=== PATIENT | female | born 1960 | race African-American/Black ===

== ENCOUNTER 2018-09-10 18:55 | Inpatient (IN) | payer SELFPAY, OTHER ==
[2018-09-10 19:39] LABS: ADD MAN DIFF? NO
[2018-09-10 19:42] LABS: BASOPHILS % 0.8 % (0.0-2.0); EOSINOPHILS # 0.1 10^3/ul (0.0-0.5); EOSINOPHILS % 1.4 % (0.0-7.0); HEMATOCRIT 32.9 % (37.0-47.0); HEMOGLOBIN 10.7 g/dl (12.0-16.0); LYMPHOCYTES # 1.4 10^3/ul (0.8-2.9); LYMPHOCYTES % 38.1 % (15.0-51.0); MEAN CORPUSCULAR HEMOGLOBIN 34.1 pg (29.0-33.0); MEAN CORPUSCULAR HGB CONC 32.5 g/dl (32.0-37.0); MEAN CORPUSCULAR VOLUME 104.8 fl (82.0-101.0); MEAN PLATELET VOLUME 9.5 fl (7.4-10.4); MONOCYTE # 0.4 10^3/ul (0.3-0.9); MONOCYTES % 10.9 % (0.0-11.0); NEUTROPHIL # 1.7 10^3/ul (1.6-7.5); NEUTROPHILS % 48.2 % (39.0-77.0); PLATELET COUNT 158 10^3/UL (140-415); RED BLOOD COUNT 3.14 10^6/ul (4.20-5.40)
[2018-09-10 19:42] LABS: WHITE BLOOD COUNT 3.6 10^3/ul (4.8-10.8)
[2018-09-10] MEDS: FENTAnyl 50 MCG/ML VIAL IV (19:50)
[2018-09-10 20:05] LABS: ANION GAP 17 (5-13); BLOOD UREA NITROGEN 6 mg/dl (7-20); CALCIUM 9.3 mg/dl (8.4-10.2); CARBON DIOXIDE 17 mmol/L (21-31); CHLORIDE 103 mmol/L (97-110); CREATININE 0.41 mg/dl (0.44-1.00); Estimated GFR > 60 mL/min (>60); GLUCOSE 89 mg/dl (70-220); SODIUM 137 mmol/L (135-144)
[2018-09-10 20:08] LABS: INR 0.96; PROTIME 12.9 Sec (11.9-14.9)
[2018-09-10 20:09] LABS: PARTIAL THROMBOPLASTIN TIME 25.7 Sec (23.0-35.0)
[2018-09-10] MEDS: HYDROmorphONE 2 MG/ML SYG IV (20:37)
[2018-09-10] MEDS: ONDANSETRON 4 MG INJ IV (22:00)
[2018-09-10] MEDS: ACETAMINOPHEN 325 MG TAB PO (22:00)
[2018-09-10] MEDS ORDERED: ONDANSETRON 4 MG INJ IV (23:00)
[2018-09-10] MEDS ORDERED: NACL 0.9% 3 ML SYG IV (23:00)
[2018-09-10] MEDS ORDERED: ACETAMINOPHEN 325 MG TAB PO (23:00)
[2018-09-10] MEDS: HYDROCODONE/APAP (5/325) TAB PO (23:02)
[2018-09-10] MEDS: HYDROmorphONE 1 MG/ML SYG IV (23:58)
[2018-09-11] MEDS: HYDROmorphONE 1 MG/ML SYG IV (04:40)
[2018-09-11 05:02] LABS: ADD MAN DIFF? NO
[2018-09-11 05:06] LABS: BASOPHILS % 0.5 % (0.0-2.0); EOSINOPHILS % 0.7 % (0.0-7.0); HEMATOCRIT 27.4 % (37.0-47.0); LYMPHOCYTES # 1.6 10^3/ul (0.8-2.9); MEAN CORPUSCULAR HEMOGLOBIN 33.8 pg (29.0-33.0); MEAN CORPUSCULAR HGB CONC 32.8 g/dl (32.0-37.0); MEAN PLATELET VOLUME 10.1 fl (7.4-10.4); MONOCYTE # 0.4 10^3/ul (0.3-0.9); MONOCYTES % 9.8 % (0.0-11.0); NEUTROPHIL # 2.2 10^3/ul (1.6-7.5); NEUTROPHILS % 51.5 % (39.0-77.0); PLATELET COUNT 151 10^3/UL (140-415); RED BLOOD COUNT 2.66 10^6/ul (4.20-5.40); RED CELL DISTRIBUTION WIDTH 15.1 % (11.5-14.5)
[2018-09-11 05:06] LABS: WHITE BLOOD COUNT 4.2 10^3/ul (4.8-10.8)
[2018-09-11 05:25] LABS: ALANINE AMINOTRANSFERASE 29 IU/L (13-69); ALBUMIN 3.7 g/dl (3.3-4.9); ALBUMIN/GLOBULIN RATIO 1.54; ALKALINE PHOSPHATASE 84 IU/L (42-121); ANION GAP 11 (5-13); ASPARTATE AMINO TRANSFERASE 52 IU/L (15-46); BILIRUBIN,INDIRECT 0.5 mg/dl (0-1.1); BILIRUBIN,TOTAL 0.5 mg/dl (0.2-1.3); BLOOD UREA NITROGEN 6 mg/dl (7-20); CARBON DIOXIDE 25 mmol/L (21-31); CHLORIDE 102 mmol/L (97-110); CREATININE 0.46 mg/dl (0.44-1.00); Estimated GFR > 60 mL/min (>60); GLUCOSE 94 mg/dl (70-220); MAGNESIUM 1.7 mg/dl (1.7-2.5); PHOSPHORUS 4.4 mg/dl (2.5-4.9); POTASSIUM 4.1 mmol/L (3.5-5.1); SODIUM 138 mmol/L (135-144); TOTAL PROTEIN 6.1 g/dl (6.1-8.1)
[2018-09-11] MEDS: HYDROCODONE/APAP (5/325) TAB PO ×3 (06:44→19:37)
[2018-09-11] MEDS: morphine 4 MG/ML VIAL IV ×5 (08:07→20:59)
[2018-09-11 14:52] LABS: IMMEDIATE SPIN CROSSMATCH 1 2
[2018-09-11 19:03] LABS: ADD MAN DIFF? NO
[2018-09-11 19:10] LABS: WHITE BLOOD COUNT 4.4 10^3/ul (4.8-10.8)
[2018-09-11 19:10] LABS: BASOPHILS % 0.5 % (0.0-2.0); EOSINOPHILS % 0.9 % (0.0-7.0); HEMATOCRIT 31.1 % (37.0-47.0); HEMOGLOBIN 10.2 g/dl (12.0-16.0); LYMPHOCYTES # 1.2 10^3/ul (0.8-2.9); LYMPHOCYTES % 26.1 % (15.0-51.0); MEAN CORPUSCULAR HEMOGLOBIN 33.3 pg (29.0-33.0); MEAN CORPUSCULAR HGB CONC 32.8 g/dl (32.0-37.0); MEAN CORPUSCULAR VOLUME 101.6 fl (82.0-101.0); MONOCYTE # 0.4 10^3/ul (0.3-0.9); NEUTROPHIL # 2.7 10^3/ul (1.6-7.5); PLATELET COUNT 141 10^3/UL (140-415); RED BLOOD COUNT 3.06 10^6/ul (4.20-5.40); RED CELL DISTRIBUTION WIDTH 15.6 % (11.5-14.5)
[2018-09-12] MEDS: morphine 4 MG/ML VIAL IV ×4 (01:07→13:18)
[2018-09-12] MEDS: morphine 2 MG INJ IV (17:45)
[2018-09-12] MEDS ORDERED: morphine SULFATE/PF (2 MG/2 ML) SYG IV (18:00)
[2018-09-12] MEDS ORDERED: MIDAZOLAM 1 MG/ML 2 ML INJ (18:29)
[2018-09-12] MEDS ORDERED: FENTAnyl 50 MCG/ML VIAL (18:30)
[2018-09-12] MEDS ORDERED: HYDROmorphONE 1 MG/5 ML IV SYRINGE IV ×2 (18:30)
[2018-09-12] MEDS ORDERED: PROCHLORPERAZINE 10 MG INJ IV (18:30)
[2018-09-12] MEDS ORDERED: PROPOFOL 20 ML (18:30)
[2018-09-12] MEDS ORDERED: DIPHENHYDRAMINE 50 MG INJ IV ×2 (18:30→20:30)
[2018-09-12] MEDS ORDERED: FENTAnyl 50 MCG/ML VIAL IV (18:30)
[2018-09-12] MEDS ORDERED: ONDANSETRON 4 MG INJ IV (18:30)
[2018-09-12] MEDS ORDERED: LIDOCAINE 2% (SDV) 5 ML INJ (18:30)
[2018-09-12] MEDS ORDERED: MEPERIDINE 25 MG INJ IV (18:30)
[2018-09-12] MEDS ORDERED: morphine SULFATE/PF (10 MG/10 ML) INJ (18:31)
[2018-09-12] MEDS ORDERED: PHENYLephrine (100 MCG/ML) 5ML SYG ×2 (19:12→19:31)
[2018-09-12] MEDS ORDERED: CLINDAMYCIN 900 MG/D5W (PMX) 50 ML IVPB (19:14)
[2018-09-12] MEDS ORDERED: DEXAMETHASONE 4 MG/ML 5 ML INJ (19:16)
[2018-09-12] MEDS ORDERED: ONDANSETRON 4 MG INJ (19:16)
[2018-09-12] MEDS ORDERED: FAMOTIDINE 20 MG INJ (19:17)
[2018-09-12] MEDS ORDERED: EPHEDrine SULFATE 50 MG/5 ML SYG (20:04)
[2018-09-12] MEDS ORDERED: oxyCODONE 5 MG TAB PO (20:30)
[2018-09-12] MEDS ORDERED: NACL 0.9% 3 ML SYG IV (20:30)
[2018-09-12] MEDS ORDERED: morphine 4 MG/ML VIAL IV (20:30)
[2018-09-12] MEDS ORDERED: NALOXONE (0.4 MG/ML) INJ IV (20:30)
[2018-09-12] MEDS ORDERED: HYDROmorphONE 0.5 MG/0.5 ML SYG IV (20:30)
[2018-09-12] MEDS: CLINDAMYCIN 900 MG/D5W (PMX) 50 ML IVPB (22:10)
[2018-09-12] MEDS: DEXTROSE 5%-LR 1,000 ML IV (22:10)
[2018-09-12] MEDS: HYDROmorphONE 0.5 MG/0.5 ML SYG IV (22:50)
[2018-09-13] MEDS: HYDROmorphONE 0.5 MG/0.5 ML SYG IV ×5 (01:07→14:23)
[2018-09-13 05:10] LABS: ADD MAN DIFF? NO
[2018-09-13 05:13] LABS: WHITE BLOOD COUNT 5.4 10^3/ul (4.8-10.8)
[2018-09-13 05:13] LABS: ABNORMAL IP MESSAGE 1; BASOPHILS % 0.2 % (0.0-2.0); HEMATOCRIT 25.7 % (37.0-47.0); HEMOGLOBIN 8.5 g/dl (12.0-16.0); LYMPHOCYTES # 0.3 10^3/ul (0.8-2.9); LYMPHOCYTES % 5.7 % (15.0-51.0); MEAN CORPUSCULAR HEMOGLOBIN 33.5 pg (29.0-33.0); MEAN CORPUSCULAR HGB CONC 33.1 g/dl (32.0-37.0); MEAN CORPUSCULAR VOLUME 101.2 fl (82.0-101.0); MEAN PLATELET VOLUME 10.3 fl (7.4-10.4); MONOCYTE # 0.3 10^3/ul (0.3-0.9); MONOCYTES % 5.2 % (0.0-11.0); NEUTROPHIL # 4.8 10^3/ul (1.6-7.5); NEUTROPHILS % 88.5 % (39.0-77.0); PLATELET COUNT 132 10^3/UL (140-415); RED BLOOD COUNT 2.54 10^6/ul (4.20-5.40); RED CELL DISTRIBUTION WIDTH 14.8 % (11.5-14.5)
[2018-09-13] MEDS: CLINDAMYCIN 900 MG/D5W (PMX) 50 ML IVPB ×2 (05:35→14:19)
[2018-09-13 05:37] LABS: ANION GAP 9 (5-13); BLOOD UREA NITROGEN 7 mg/dl (7-20); CALCIUM 8.4 mg/dl (8.4-10.2); CARBON DIOXIDE 25 mmol/L (21-31); CHLORIDE 100 mmol/L (97-110); CREATININE 0.42 mg/dl (0.44-1.00); Estimated GFR > 60 mL/min (>60); GLUCOSE 281 mg/dl (70-220); POTASSIUM 3.9 mmol/L (3.5-5.1); SODIUM 134 mmol/L (135-144)
[2018-09-13 05:46] LABS: POSITIVE DIFF @See below
[2018-09-13] MEDS: ENOXAPARIN 40 MG/0.4 ML SYG SC (08:22)
[2018-09-13] MEDS: DEXTROSE 5%-LR 1,000 ML IV ×3 (08:59→21:29)
[2018-09-13] MEDS ORDERED: ENOXAPARIN 40 MG/0.4 ML SYG SC (09:00)
[2018-09-13 12:09] LABS: ADD UMIC YES; UR ASCORBIC ACID NEGATIVE (NEGATIVE); UR BILIRUBIN (Dip) NEGATIVE (NEGATIVE); UR BLOOD (Dip) 1+ mg/dL (NEGATIVE); UR CLARITY CLEAR (CLEAR); UR COLOR YELLOW (YELLOW); UR GLUCOSE (Dip) 1+ mg/dL (NEGATIVE); UR KETONES (Dip) NEGATIVE (NEGATIVE); UR LEUKOCYTE ESTERASE (Dip) NEGATIVE Leu/ul (NEGATIVE); UR NITRITE (Dip) NEGATIVE (NEGATIVE); UR RBC 16 /HPF (0-5); UR SPECIFIC GRAVITY (Dip) 1.015 (1.003-1.030); UR TOTAL PROTEIN (Dip) 1+ mg/dl (NEGATIVE); UR UROBILINOGEN (Dip) 1+ mg/dL (NEGATIVE); UR WBC 5 /HPF (0-5)
[2018-09-13] MEDS: oxyCODONE 5 MG TAB PO ×2 (17:44→21:57)
[2018-09-13] MEDS: HYDROCODONE/APAP (5/325) TAB PO (20:55)
[2018-09-14] MEDS: oxyCODONE 5 MG TAB PO ×5 (02:04→22:49)
[2018-09-14] MEDS: HYDROCODONE/APAP (5/325) TAB PO ×2 (09:41→17:04)
[2018-09-14] MEDS: DEXTROSE 5%-LR 1,000 ML IV ×2 (09:59→22:29)
[2018-09-14 10:17] LABS: ADD MAN DIFF? NO
[2018-09-14 10:31] LABS: BASOPHILS % 0.4 % (0.0-2.0); EOSINOPHILS # 0.1 10^3/ul (0.0-0.5); EOSINOPHILS % 1.2 % (0.0-7.0); HEMATOCRIT 27.3 % (37.0-47.0); HEMOGLOBIN 8.9 g/dl (12.0-16.0); LYMPHOCYTES # 1.4 10^3/ul (0.8-2.9); LYMPHOCYTES % 28.3 % (15.0-51.0); MEAN CORPUSCULAR HEMOGLOBIN 33.5 pg (29.0-33.0); MEAN CORPUSCULAR HGB CONC 32.6 g/dl (32.0-37.0); MEAN CORPUSCULAR VOLUME 102.6 fl (82.0-101.0); MEAN PLATELET VOLUME 10.8 fl (7.4-10.4); MONOCYTE # 0.4 10^3/ul (0.3-0.9); NEUTROPHILS % 60.3 % (39.0-77.0); PLATELET COUNT 147 10^3/UL (140-415); POSITIVE DIFF @See below; RED BLOOD COUNT 2.66 10^6/ul (4.20-5.40); RED CELL DISTRIBUTION WIDTH 15.5 % (11.5-14.5)
[2018-09-14 10:31] LABS: WHITE BLOOD COUNT 4.9 10^3/ul (4.8-10.8)
[2018-09-14 10:52] LABS: ANION GAP 7 (5-13); BLOOD UREA NITROGEN 6 mg/dl (7-20); CALCIUM 9.3 mg/dl (8.4-10.2); CARBON DIOXIDE 27 mmol/L (21-31); CHLORIDE 104 mmol/L (97-110); CREATININE 0.39 mg/dl (0.44-1.00); Estimated GFR > 60 mL/min (>60); GLUCOSE 104 mg/dl (70-220); POTASSIUM 3.8 mmol/L (3.5-5.1); SODIUM 138 mmol/L (135-144)
[2018-09-14] MEDS: HYDROmorphONE 1 MG/ML SYG IV ×3 (11:54→20:36)
[2018-09-14] MEDS: SOD FERRIC GLUC COMPLX 125 MG in SOD CHLORIDE 0.9% 100 ML IVPB (11:57)
[2018-09-14] MEDS: ENOXAPARIN 40 MG/0.4 ML SYG SC (15:18)
[2018-09-15] MEDS: HYDROmorphONE 1 MG/ML SYG IV ×3 (00:13→06:07)
[2018-09-15] MEDS: HYDROCODONE/APAP (5/325) TAB PO ×2 (00:50→07:26)
[2018-09-15] MEDS: oxyCODONE 5 MG TAB PO ×2 (03:54→09:03)
[2018-09-15] MEDS: ENOXAPARIN 40 MG/0.4 ML SYG SC (09:01)
[2018-09-15] MEDS ORDERED: POLYETHYLENE GLYCOL 17 GM PACKET PO (10:00)
[2018-09-15] MEDS ORDERED: CELECOXIB 100 MG CAP PO (11:00)
[2018-09-15] MEDS: OXYCODONE/ACETAMINOPHEN (10/325) TAB PO ×4 (11:32→22:57)
[2018-09-15] MEDS: GABAPENTIN 300 MG CAP PO ×2 (13:43→21:03)
[2018-09-15] MEDS: SOD FERRIC GLUC COMPLX 125 MG in SOD CHLORIDE 0.9% 100 ML IVPB (13:45)
[2018-09-16] MEDS: OXYCODONE/ACETAMINOPHEN (10/325) TAB PO ×3 (03:06→11:41)
[2018-09-16] MEDS: GABAPENTIN 300 MG CAP PO (09:11)
[2018-09-16] MEDS: ENOXAPARIN 40 MG/0.4 ML SYG SC (09:17)
[2018-09-16 11:33] LABS: ANION GAP 6 (5-13); BLOOD UREA NITROGEN 5 mg/dl (7-20); CALCIUM 9.2 mg/dl (8.4-10.2); CARBON DIOXIDE 30 mmol/L (21-31); CHLORIDE 102 mmol/L (97-110); Estimated GFR > 60 mL/min (>60); GLUCOSE 113 mg/dl (70-220); MAGNESIUM 1.8 mg/dl (1.7-2.5); PHOSPHORUS 4.8 mg/dl (2.5-4.9); SODIUM 138 mmol/L (135-144)
[2018-09-16] MEDS: SOD FERRIC GLUC COMPLX 125 MG in SOD CHLORIDE 0.9% 100 ML IVPB (13:57)
[2018-09-16] MEDS: oxyCODONE 5 MG TAB PO ×2 (15:29→20:17)
[2018-09-16] MEDS: HYDROCODONE/APAP (5/325) TAB PO ×2 (17:39→18:19)
[2018-09-16] MEDS: HYDROmorphONE 1 MG/ML SYG IV (23:17)
[2018-09-17] MEDS: HYDROmorphONE 1 MG/ML SYG IV ×2 (02:33→09:27)
[2018-09-17] MEDS: oxyCODONE 5 MG TAB PO ×2 (07:22→13:09)
[2018-09-17] MEDS: ENOXAPARIN 40 MG/0.4 ML SYG SC (09:28)
[2018-09-17] MEDS: HYDROCODONE/APAP (5/325) TAB PO (14:38)
== END 2018-09-17 16:20 | disposition home health service (06) | DRG 481 ==
LOC: MS1 09-13 16:59 → E/R 18:55 → MS1 21:18
PROC: 0QS606Z Reposition Right Upper Femur with Intramedullary Internal Fixation Device, Open Approach (ICD-10-PCS; principal; 2018-09-12 16:30)
PROC: 30233N1 Transfusion of Nonautologous Red Blood Cells into Peripheral Vein, Percutaneous Approach (ICD-10-PCS; 2018-09-12 18:28)
DX: S72.141A Displaced intertrochanteric fracture of right femur, initial encounter for closed fracture (principal); D62 Acute posthemorrhagic anemia; W01.0XXA Fall on same level from slipping, tripping and stumbling without subsequent striking against object, initial encounter; Y92.480 Sidewalk as the place of occurrence of the external cause
CPT/HCPCS: 36430; 71045; 72170; 73500; 73510; 73530; 80048; 80053; 81001; 83735; 84100; 85025; 85610; 85730; 86850; 86900; 86901; 86920; 87081; 96374; 96375; 97110; 97116; 97161; 97530; 99285-25